=== PATIENT | male | born 2000 | race Caucasian/White ===

== ENCOUNTER 2022-05-13 12:30 | Emergency (ER) | payer OTHER, SELFPAY ==
[2022-05-13 12:38] VITALS: BP 161/90; PULSE 97; RESP 20; TEMP 35.6; O2SAT 98; BMI 68.7
--- NOTE | 2022-05-13 12:48 | ED.PSYCH ---
HPI - Psych General Chief Complaint: Psychiatric Problem/Disorder Stated Complaint: Mental Health Time Seen by Provider: 05/13/22 12:31 History of Present Illness HPI Narrative: 21-year-old young man presenting to the emergency department on advice of [facility] at [employer] where he went seeking help for feelings of depression apathy. He has recently been having some thoughts of suicide where he would do something with his car, not exactly sure what. He would not want to subject any rescue provider or anyone who might even be watching a television to some [place] [place]. The other day he, well-being rather averse to blood, for the 1st time took his keys and repeatedly scratched his arm. He appreciated the warmth in anticipation of those red cells surgery in that area. This was an unusual new sensation for him. He is a sophomore at [employer]. Is always been a good student. Interested in political science floss of the in theater. Is not participating any theater production at the moment. History of mental health freshman year in particular in high school where was tried on a variety of SSRIs and stimulants. Not clear that anywhere particularly effective. Does have a diagnosis of depression and o's and ADHD. Had been using marijuana heavily this summer but went cold turkey after was having too many intrusive and paranoid thoughts. He stopped this sometime mid March. Has struggled with school toward the end of last year but was able to bag for extensions which apparently were granted and completed the studies. He now over the last 2 weeks has not left his dorm room. Lives in a pod. Has a good relationship with his roommate but that is about the only person he talks too. Has rather low self-esteem given a very large body habitus and is increasingly a afraid to showing himself to other people. Stains room is challenge to participate in his classes as most of them involve participatory discussion. He has been feeling increasingly apathetic. Nothing he looking forward to over this next week. He does however become passion it when discussing ideas of society, philosophy, theater. History of self soothing with food but with some frightening him is that is not even helping now as he drives around to various fast food joints; this is the only way laces room. Family history of substance abuse where his dad was an alcoholic and has just been released from senior living with a history of violent crime. His mother somewhere in [place]. Was raised primarily by his grandmother. Related Data Home Medications Medication Instructions Recorded Confirmed No Known Home Medications 05/13/22 05/13/22 Allergies Allergy/AdvReac Type Severity Reaction Status Date / Time No Known Drug Allergies Allergy Verified 05/13/22 12:45 [facility] Social History Smoking Status: Never smoker Do you use any of these nicotine containing products: Vaping Products Second hand tobacco smoke exposure: Yes How often do you have a drink containing alcohol: never AUDIT-C Alcohol total score: 0 Non-prescribed substance use: marijuana (any form) Exam Narrative: Exam Narrative: Pleasant. A little downcast initially increasingly animated though in talking about subjects that he is passionate. Thoughtful. Demonstrating good insight. Mood is depressed affect varies. Morbidly obese. Sounds a little congested consistent with obesity. Otherwise breathing easily. Moving all extremities without difficulty. Cranial nerves 2-12 intact. At one point left hand tremors a little bit when seemed a little more stress in conversation Very light markings possible evidence of self-harm on the left forearm, essentially indistinguishable. Cardiovascular with little elevated rate regular rhythm. Abdomen is obese. Moving all extremities without difficulty. Const: Vital Signs, click to edit/add: Vital Signs - 24 hr 05/13/22 12:38 Temperature 96.0 F L Pulse Rate [Right Pulse Oximeter] 97 Respiratory Rate 20 Blood Pressure [Le ft Upper Arm] 161/90 H Pulse Oximetry 98 Oxygen Delivery Me thod Room Air Documenting provider has reviewed patient's vital signs: yes Course Course Hospital Course: Requested DEC consult to assist in more rapidly obtaining psychiatric cares. Reevaluation(s) Reevaluation #1: Appears well and of good affect. Vital Signs Vital signs: Initial Vital Signs Temperature 96.0 F L 05/13/22 12:38 Temperature Source Temporal Artery Scan 05/13/22 12:38 Pulse Rate 97 05/13/22 12:38 Respiratory Rate 20 05/13/22 12:38 Blood Pressure 161/90 H 05/13/22 12:38 Blood Pressure Mean 113 05/13/22 12:38 Blood Pressure Position Sitting 05/13/22 12:38 Pulse Oximetry 98 05/13/22 12:38 Oxygen Delivery Method 05/13/22 12:38 Vital Signs Temperature 96.0 F L 05/13/22 12:38 Pulse Rate 97 05/13/22 12:38 Respiratory Rate 20 05/13/22 12:38 Blood Pressure 161/90 H 05/13/22 12:38 Pulse Oximetry 98 05/13/22 12:38 Oxygen Delivery Method 05/13/22 12:38 Temperature 96.0 F L 05/13/22 12:38 Pulse Rate 97 05/13/22 12:38 Respiratory Rate 20 05/13/22 12:38 Blood Pressure 161/90 H 05/13/22 12:38 Pulse Oximetry 98 05/13/22 12:38 Oxygen Delivery Method 05/13/22 12:38 MDM - Psych MDM Narrative Medical decision making narrative: Thoughtful introspective young man. Exhibiting passive thoughts of suicidality. It appears that would benefit from counseling sessions and possibly medication. We will be obtaining DEC assessment. DEC concurs with safety to discharge home to follow-up psychiatric cares. Discharge Plan Discharge Clinical Impression: Depression, Passive suicidal ideations Patient Disposition: Home w/ Parent or Adult Condition: Stable Additional Instructions: Please follow-up with appointments as scheduled. As discussed you have an appointment on Thursday at 1:00 p.m. virtually with a psychiatrist to consider initiation of medication. Expect DEC to contact you. Otherwise follow-up with therapy appointments through [facility]. At the risk of being too campy. I think that you have a lot to offer. Try to get out there. Plan something fun to do in within the next week with your roommate perhaps? Good quality and regular sleep. Try to experience the morning sunlight. If after talking with therapy or calling crisis line, talking with friends or roommate, you feel further unsafe, please return to the emergency department. Prescriptions: No Action No Known Home Medications Follow Up/Referrals: Provider,Not a Local [Primary Care Provider] - Stand Alone Forms: [email or web address] Info Instructions
--- NOTE | 2022-05-13 13:30 | ED.NURSE ---
DEC assessment initiated.
--- NOTE | 2022-05-13 13:30 | ED.NURSE ---
Pt's Juancho from [facility] ([facility]) called and asked for update on pt. Pt stated it was okay to give an update to [facility] that pt was here and he was safe. [facility] ([phone]) contacted and notified by software writer that pt was here in ED and safe.
--- NOTE | 2022-05-13 15:16 | ED.NURSE ---
Pt safety plan from [facility] reviewed with pt. Pt verbalized understanding of plan and signed plan. Copy of plan and appts provided to pt with DC paperwork.
== END 2022-05-13 15:23 | disposition home or self-care (01) ==
PROVIDERS: Emergency Provider Family Medicine
DX: R45.851 Suicidal ideations (principal); F32.A Depression, unspecified
CPT/HCPCS: 99283; 99284